=== PATIENT | male | born 1970 | race Caucasian/White ===

== ENCOUNTER 2018-09-23 00:59 | Observation (INO) ==
--- NOTE | 2018-09-23 03:01 | Emergency Department Note ---
Disposition Clinical Impression: Intractable back pain Disposition: Admitted As Inpatient Condition: Good Back Pain HPI - General Chief Complaint: ED Back Pain/Injury Stated Complaint: back pain Time Seen by Provider: 09/23/18 01:11 Source: patient, EMS Mode of arrival: private vehicle Limitations: no limitations Nursing Notes Reviewed: Yes Vital Signs Reviewed: Yes - History of Present Illness HPI Narrative: This is a 47-year-old male with a known history of degenerative disc disease to his lumbar spine his recently admitted here on 09/15 for intractable pain, inability to walk due to the pain. He was discharged on 09/20/18 and presents back tonight for evaluation of being in severe pain, continues to be unable to walk. Patient states pain is so severe that he had to utilize 28 tabs of Vicodin in less than 48 hours and is still was not assisting with pain management. Patient states pain is so severe he is unable to walk. He denies any slips, trips, trauma, falls, new injury. He states the pain is in his lumbar spine worse on the left side with radiation down his leg with some paresthesias to the left lower extremity. He states the pain is sharp and almost constantly, every little movement is too painful for him. Patient also complaining of constipation as well as "my urine is getting dark". Patient specifically asking to be admitted to the hospital due to being unable to care for himself at home. Patient denies fevers, chills, difficulty breathing, nausea, vomiting, diarrhea. Pt Subjective Complaint: back pain Onset (ago): week(s) Duration: constant Similar Symptoms Previously: Yes Location: lumbar spine Pain Severity: severe Pain Scale: 10 Quality: sharp, stabbing Radiation: left leg Improves with: other (Medication.) Worsens with: movement, supine, sitting upright, walking Context: unknown Associated symptoms: Reports: numbness (No increased, same as before), weakness (No increase, same weakness as before), difficulty walking. Denies: in continence of bowel/bladder, fever, chills, abdominal pain, dysuria, hematuria Treatments prior to arrival: acetaminophen, prescription analgesics - Related Data Home Medications Medication Instructions Recorded Confirmed Levothyroxine Sodium 250 mcg PO DAILY 09/14/18 09/23/18 Nabumetone [Relafen] 500 mg PO BID 09/14/18 09/23/18 Tizanidine HCl 2 mg PO TID PRN 09/14/18 09/23/18 Previous Rx's Medication Instructions Recorded Acetaminophen [Tylenol] 650 mg PO Q6HR PRN 7 Days #56 09/17/18 tablet Alcohol Antiseptic Pads [Alcohol 1 each [facility] 100 Days #500 09/17/18 Pads] med..pad Blood Sugar Diagnostic [Blood 1 each [facility] 100 Days #400 strip 09/17/18 Glucose Test Strip] Blood-Glucose Meter [Blood Glucose 1 each [facility] #1 each 09/17/18 Monitoring] HYDROcodone/Acet 5/325 mg [[place] 1 tab PO Q6HR PRN 7 Days #28 tablet 09/17/18 5-325 mg] Insulin Glargine,Hum.rec.anlog 15 unit SQ HS 30 Days #5 insuln.pen 09/17/18 [Basaglar Kwikpen U-100] Lancets 1 each [facility] 100 Days #400 each 09/17/18 OxyCODONE Immed Rel [Roxicodone 5 10 mg PO Q6HR PRN 7 Days #56 tablet 09/17/18 MG] Pen Needle, Diabetic [1St Tier 1 each HS 30 Days #30 dis.needle 09/17/18 Unifine Pentips] Sitagliptin Phos/Metformin HCl 1 each PO BID 30 Days #60 tablet 09/17/18 [Janumet 50-500 mg Tablet] Gabapentin [Neurontin] 300 mg PO TID 30 Days #90 capsule 09/20/18 methylPREDNISolone [Medrol] 32 mg PO DAILY 8 Days #30 tablet 09/20/18 Allergies Allergy/AdvReac Type Severity Reaction Status Date / Time Penicillins Allergy Seizure Verified 02/24/16 03:20 All systems ED: reviewed and negative except as stated. Review of Systems: As Per HPI Past Medical History - Past Medical History Attestation: Yes The following information was validated with the patient. Source: patient Medical history: Reports: diabetes, thyroid disease, other Surgical history: Reports: no surgical history Psychiatric history: Reports: no psych history - Social History Smoking Status: Current every day smoker Smokeless Tobacco Status: No Alcohol use: Reports: none Drug use: Reports: marijuana Physical Exam - General Limitations: no limitations General appearance: alert, in distress (Due to pain) - Head Head exam: atraumatic, normocephalic, normal inspection - Eye Eye exam: Present: normal appearance - ENT ENT exam: mucous membranes moist - Neck Neck exam: Present: normal inspection, full ROM, trachea midline. Absent: tenderness - Chest Chest inspection: Present: normal inspection, symmetric chest wall rise - Abdominal Exam Abdominal exam: Present: soft, Non-Tender - Extremities Exam Extremities exam: Present: normal inspection, full ROM. Absent: tenderness, pedal edema - Back Exam Back exam: Present: normal inspection, full ROM (He does still out in pain), straight leg raise (L). Absent: tenderness, vertebral tenderness, sciatic notch tenderness (L) - Neurological Exam Neurological exam: Present: alert, oriented X3. Absent: normal gait (Due to pain will not attempt) - Psychiatric Psychiatric exam: Present: normal affect, normal mood - Skin Skin exam: Present: warm, dry, intact, normal color Course Course Narrative: Thin male who appears in moderate amount of distress due to pain. Respirations are easy and even. Patient noted to keep left leg flexed, he states is too painful to lie flat. Active range of motion to bilateral lower extremity shows patient The back of signs screaming in pain with straight leg raise, he does have full range of motion to his knee, ankle. Active range of motion right side without deficit. Patient is neurovascularly intact distally, push/pulls are equal and strong. Patient does have some paresthesia to left leg, he states this has been the whole time and is not any worse. I do not Appreciate any evidence saddle anesthesia. We will treat pain continue to evaluate. Patient insisted that he is unable to walk home, given the severity of his symptoms, I find unlikely we will be able to discharge patient as he is unable care for himself at home. Review records shows patient was admitted on 09/15 for severe back pain and not being able to walk. He did have an MRI of the lumbar spine on 09/15 which showed degenerative disc disease of lumbar spine, there is some disc bulging however this was worse at the L5/S1 that showed disc bulging with central protrusion. The patient was here he saw Dr. Pina from spinal surgery who recommended PT/OT and following outpatient prior to considering surgery, patient did see paint formulator Dr. Velasquez who added gabapentin 2 pain regimen and agreed to follow for pain management. He was given 20 tablets of Vicodin upon discharge, he states he has taken them all in less than 48*. - Reevaluation(s) Reevaluation #1: Patient much calmer after pain medication administration, able to stretch his le g with minimal grimacing versus earlier when he was screaming in pain. CBC/BMP/UA returns unremarkable. KUB does show moderate amount of stool, patient is complaining of cuts patient. We did order some MiraLAX to assist with constipation. Plan at this time is we will page hospitalist for admission. Did discuss possibility of a short-term rehabilitation for PT and OT as patient is unable to take care of himself, he is agreeable to this plan of care and states that he thinks he needs it. We will page hospitalist at this time. Time: 04:39 Reevaluation #2: Spoke with hospitalist, agreeable to admit patient to inpatient services for social work, safety, possible rehabilitation placement. Vital Signs Temperature 97.9 F 09/23/18 01:02 Pulse Rate 90 09/23/18 01:02 Respiratory Rate 18 09/23/18 01:02 Blood Pressure 134/83 09/23/18 01:02 O2 Sat by Pulse Oximetry 98 09/23/18 01:02 Temperature 97.9 F 09/23/18 01:02 Pulse Rate 90 09/23/18 01:02 Respiratory Rate 18 09/23/18 05:13 Blood Pressure 131/93 09/23/18 05:13 O2 Sat by Pulse Oximetry 97 09/23/18 04:09 Oxygen Delivery Oxygen Delivery Room Air Back Pain/Injury - Lab Data Result diagrams: 09/23/18 04:00 09/23/18 04:00 Lab Results 09/23/18 09/23/18 09/23/18 Range/Units 03:55 04:00 04:00 WBC 8.9 (4.3-11.1) K/mcL RBC 5.73 H (4.19-5.50) M/mcL Hgb 17.3 H (12.9-16.9) g/dL Hct 49.1 (37.5-50.1) % MCV 85.7 (83.0-100.0) fL MCH 30.2 (28.0-33.3) pg MCHC 35.2 (31.6-35.5) g/dL RDW 12.1 (11.5-14.5) % Plt Count 329 (140-400) K/mcL MPV 9.1 L (9.4-12.4) fL Immature Gran % 0.6 (0-4) % Seg Neutrophils % 77.6 % Lymphocytes % 18.4 % Monocytes % 3.1 % Eosinophils % 0.1 % Basophils % 0.2 % Neutrophils # 6.9 (1.6-8.9) K/mcL Lymphocytes # 1.6 (0.6-4.6) K/mcL Monocytes # 0.3 (0.0-1.3) K/mcL Eosinophils # 0.0 (0.0-0.6) K/mcL Basophils # 0.0 (0.0-0.2) K/mcL Sodium 136 (136-145) mEq/L Potassium 4.4 (3.5-5.1) mEq/L Chloride 101 (98-107) mEq/L Carbon Dioxide 28 (23-29) mEq/L BUN 21 H (6-20) mg/dL Creatinine 0.93 (0.70-1.30) mg/dL Est GFR ( Amer) > 60 (> 60) Est GFR (Non-Af Amer) > 60 (> 60) BUN/Creatinine Ratio 23 (6-26) Glucose 87 (70-105) mg/dL Calculated Osmolality 284 (280-300) Calcium 9.4 (8.6-10.3) mg/dL Urine Color Yellow (Yellow) Urine Clarity Clear (Clear) Urine pH 6.0 (5.0-8.0) pH Units Ur Specific [place] 1.025 (1.010-1.025) Urine Protein Negative (Neg-Trace) mg/dL Urine Glucose (UA) Normal (Normal) mg/dL Urine Ketones Negative (Negative) mg/dL Urine Blood Moderate H (Negative) Urine Nitrite Negative (Negative) Urine Bilirubin Negative (Negative) Urine Urobilinogen Normal (Normal) mg/dL Ur Leukocyte Esterase Negative (Negative) Urine Microscopic RBC 15-30 H (0-3) per hpf Urine Microscopic WBC 0-3 (0-3) per hpf Ur Squamous Epith Cells None Seen (None-Few) per lpf Urine Bacteria None Seen (None-Few) per hpf Hyaline Casts None Seen (None-Few) per lpf Ur Culture Indicated? NO (NO) Attestation Statement - Attestation Attestation: I, Uvaldo Ibanez, examined this patient and my medical decision-making was reviewed with the APPRAISAL SPECIALIST/PA/Advanced Practice Nurse/Resident Physician. I agree with the documented findings, disposition and treatment plan as described except to the extent set forth below. 47-year-old male presents emergency Department with concerns of intractable back pain. Patient states he was recently admitted to the hospital for similar issues. He was at home however he states he has been unable to ambulate at home secondary to pain. States he has multiple herniated disks in his lumbar spine however he denies incontinence of urine or stool. He has intact sensation intact. Unlikely cauda equina. Patient given pain medication emergency department. He will be admitted to the hospitalist for further care and evaluation and likely placement into a rehabilitation facility.
[2018-09-23] MEDS ORDERED: *HR* FentaNYL (PF) 100 MCG/2 ML VIAL IVP ONE (03:04)
[2018-09-23 04:13] LABS: Bilirubin,Urine Negative (Negative); Blood,Urine Moderate (Negative); Clarity,Urine Clear (Clear); Color,Urine Yellow (Yellow); Glucose,Urine (UA) Normal (Normal); Ketones,Urine Negative (Negative); Leukocyte Esterase,Urine Negative (Negative); Nitrite,Urine Negative (Negative); Protein,Urine Negative (Neg-Trace); Specific Gravity,Urine 1.025 (1.010-1.025); Urobilinogen,Urine Normal (Normal)
[2018-09-23 04:16] LABS: Basophils % 0.2 %; Eosinophils % 0.1 %; Hematocrit 49.1 % (37.5-50.1); Hemoglobin 17.3 g/dL (12.9-16.9); Immature Granulocytes % 0.6 % (0-4); Lymphocytes # 1.6 K/mcL (0.6-4.6); Lymphocytes % 18.4 %; Mean Corpuscular HGB Conc 35.2 g/dL (31.6-35.5); Mean Corpuscular Hemoglobin 30.2 pg (28.0-33.3); Mean Corpuscular Volume 85.7 fL (83.0-100.0); Mean Platelet Volume 9.1 fL (9.4-12.4); Monocytes # 0.3 K/mcL (0.0-1.3); Monocytes % 3.1 %; Neutrophils # 6.9 K/mcL (1.6-8.9); Platelet Count 329 K/mcL (140-400); Red Blood Count 5.73 M/mcL (4.19-5.50); Red Cell Distribution Width 12.1 % (11.5-14.5); Segmented Neutrophils % 77.6 %
[2018-09-23 04:29] LABS: Hyaline Casts,Urine None Seen per lpf (None-Few)
[2018-09-23 04:30] LABS: RBC,Urine 15-30 per hpf (0-3); Squamous Epithelial Cell,Urine None Seen per lpf (None-Few); WBC,Urine 0-3 per hpf (0-3)
[2018-09-23 04:31] LABS: Bacteria,Urine None Seen per hpf (None-Few)
[2018-09-23 04:34] LABS: BUN/Creatinine Ratio 23 (6-26); Blood Urea Nitrogen 21 mg/dL (6-20); Calcium 9.4 mg/dL (8.6-10.3); Carbon Dioxide 28 mEq/L (23-29); Chloride 101 mEq/L (98-107); Glucose 87 mg/dL (70-105); Osmolality,Calculated 284 (280-300); Potassium 4.4 mEq/L (3.5-5.1); Sodium 136 mEq/L (136-145); eGFR For Non-African Americans > 60 (> 60)
[2018-09-23] MEDS ORDERED: Dextrose Gel 15 GM/37.5 ML TUBE PO PRN ×2 (05:51)
--- NOTE | 2018-09-23 06:09 | Internal Med History&Physical ---
Date of Encounter: 09/23/18 Time of Encounter: 06:06 Internal Medicine - H&P: HPI Chief complaint: back pain Admitted From: Home Plans for Post Hospital Care: Home History of present illness: Jose Raul Dye is a 47-year-old man with recently diagnosed diabetes and poorly controlled hypothyroidism who was discharged from here only 3 days ago at which time he was admitted for acute onset and found to have lumbar radiculopathy causing shooting pain down his right thigh and causing functional impairment and extremity due to pain. He was evaluated by Dr. Pina of orthopedic spinal surgery with the recommendation of outpatient physical therapy and referral to an interventional list for lumbar epidural steroid injections. It was stated that if he failed nonoperative treatment he could be considered for surgical discectomy at a later time but there was no neurologic deficit prompting urgent intervention at the moment. He was also evaluated by pain management with recommendations given. While at home he states that in the last 2 days he has finished the 28 tablets of [place] that was prescribed to him due to pain. He has continued to take the steroid taper however. He comes in now complaining of ongoing pain stating that he is unable to ambulate or extend his leg. He has difficulty with activities of daily living due to this functional impairment and now comes in requesting inpatient rehabilitation therapy. He received fentanyl and polyethylene glycol for reported constipation. At this time he has no other complaints. Past Med Surg Social Fam HX - Past Medical History Medical history: diabetes, thyroid disease, other Psychiatric history: no psych history - Past Surgical History Surgical History: no surgical history - Social History Smoking Status: Current every day smoker Smokeless Tobacco Status: No Alcohol use: none Drug use: marijuana Internal Medicine - H&P: Meds Levothyroxine Sodium 250 mcg PO DAILY 09/14/18 [History] Nabumetone [Relafen] 500 mg PO BID 09/14/18 [History] Tizanidine HCl 2 mg PO TID PRN 09/14/18 [History] Acetaminophen [Tylenol] 650 mg PO Q6HR PRN 7 Days #56 tablet 09/17/18 [Rx] Alcohol Antiseptic Pads [Alcohol Pads] 1 each [facility] 100 Days #500 med..pad 09/17/18 [Rx] Blood Sugar Diagnostic [Blood Glucose Test Strip] 1 each [facility] 100 Days #400 strip 09/17/18 [Rx] Blood-Glucose Meter [Blood Glucose Monitoring] 1 each [facility] #1 each 09/17/18 [Rx] HYDROcodone/Acet 5/325 mg [[place] 5-325 mg] 1 tab PO Q6HR PRN 7 Days #28 tablet 09/17/18 [Rx] Insulin Glargine,Hum.rec.anlog [Basaglar Kwikpen U-100] 15 unit SQ HS 30 Days #5 insuln.pen 09/17/18 [Rx] Lancets 1 each [facility] 100 Days #400 each 09/17/18 [Rx] OxyCODONE Immed Rel [Roxicodone 5 MG] 10 mg PO Q6HR PRN 7 Days #56 tablet 09/17/18 [Rx] Pen Needle, Diabetic [1St Tier Unifine Pentips] 1 each HS 30 Days #30 dis.needle 09/17/18 [Rx] Sitagliptin Phos/Metformin HCl [Janumet 50-500 mg Tablet] 1 each PO BID 30 Days #60 tablet 09/17/18 [Rx] Gabapentin [Neurontin] 300 mg PO TID 30 Days #90 capsule 09/20/18 [Rx] methylPREDNISolone [Medrol] 32 mg PO DAILY 8 Days #30 tablet 09/20/18 [Rx] Allergy/AdvReac Type Severity Reaction Status Date / Time Penicillins Allergy Seizure Verified 02/24/16 03:20 All Systems PM: A 10-system review of systems was performed and is negative for pertinent findings except as documented above in the HPI. Family history reviewed and found noncontributory. - Constitutional Vitals: Temp Pulse Resp BP Pulse Ox 97.9 F 90 18 131/93 97 09/23/18 01:02 09/23/18 01:02 09/23/18 05:13 09/23/18 05:13 09/23/18 04:09 Exam: Vitals: Reviewed General: Well appearing and in no acute distress Skin: Warm and supple HEENT: Moist mucous membranes. No conjunctivae pallor. Neck: No lymphadenopathy. No JVD. No carotid bruits. No palpable thyroid. Chest: Normal thoracic expansion. Normal breath sounds. Clear to auscultation. Heart: Normal S1 & S2; rhythmic. No rubs or murmurs. Abdomen: Non-distended, soft and non-tender to palpation. No peritoneal reaction. Extremities: No clubbing, cyanosis or edema. No calf tenderness. Normal distal pulses. Sensation intact. Right leg flexed and has difficulty extending due to pain. Point tenderness at the right lumbosacral region noted. Straight leg testing unable to be performed due to pain. Neurological: Awake, alert and oriented to person, place and time. No focal d eficits. Psych: Affect appropriate. Internal Med - H&P Results - Labs CBC & Chem 7: 09/23/18 04:00 09/23/18 04:00 Labs: Short CBC 09/23/18 Range/Units 04:00 WBC 8.9 (4.3-11.1) K/mcL Hgb 17.3 H (12.9-16.9) g/dL Hct 49.1 (37.5-50.1) % Plt Count 329 (140-400) K/mcL Neutrophils # 6.9 (1.6-8.9) K/mcL BMP 09/23/18 04:00 Sodium 136 Potassium 4.4 Chloride 101 Carbon Dioxide 28 BUN 21 H Creatinine 0.93 Glucose 87 Calcium 9.4 Urine 09/23/18 Range/Units 03:55 Urine Color Yellow (Yellow) Urine Clarity Clear (Clear) Urine pH 6.0 (5.0-8.0) pH Units Ur Specific [place] 1.025 (1.010-1.025) Urine Protein Negative (Neg-Trace) mg/dL Urine Glucose (UA) Normal (Normal) mg/dL - Impressions ITS Impressions Chest/Abdomen X-ray 09/23/18 03:10 IMPRESSION: No acute process in the chest. No bowel obstruction or free air. Moderate volume retained fecal material. Correlate for constipation. D/ / De Johnson / De Johnson Interpreting Provider: De Johnson - Assessment and plan (1) Lumbar radiculopathy Current Visit: Yes Status: Acute Assessment and plan: Will continue the oral steroid taper he has already started. Now on 8mg BID x 2 days then will go on to 4mg BIB x 2 days then 4mg daily x 2 days. Continue gabapentin and oxycodone prn as recommended by pain management. vegetable farm worker consult for placement in rehab center as deemed appropriate. (2) DVT prophylaxis Current Visit: Yes Status: Acute Assessment and plan: Subcutaneous heparin indicated. (3) Diabetes mellitus Current Visit: Yes Status: Acute Assessment and plan: We will place on basal insulin and continue with sliding scale during the day. Qualifiers: Diabetes mellitus type: type 2 Diabetes mellitus long chain beamer insulin use: without fpc use Diabetes mellitus complication status: without complication Qualified Code(s): E11.9 - Type 2 diabetes mellitus without complications (4) Hypothyroidism Current Visit: Yes Status: Acute Assessment and plan: Continue levothyroxine. Qualifiers: Hypothyroidism type: acquired Qualified Code(s): E03.9 - Hypothyroidism, unspecified - Time Spent With Patient Total time spent is greater than 50% in coordination of care (as documented) at patient's floor/unit and/or counseling patient: Greater than 35 minutes
[2018-09-23] MEDS: *HR* OxyCODONE Immed Rel 5 MG TABLET PO PRN ×3 (06:31→20:46)
[2018-09-23] MEDS: *HR* Heparin 5,000 UNIT/ML VIAL SQ SCH ×3 (06:31→20:47)
[2018-09-23] MEDS: Insulin LISPRO 300 UNITS/3 ML VIAL SQ SCH ×4 (08:54→20:47)
[2018-09-23] MEDS: methylPREDNISolone 4 MG TABLET PO SCH ×2 (08:56→15:30)
[2018-09-23] MEDS: Gabapentin 300 MG CAPSULE PO SCH ×3 (08:56→20:16)
[2018-09-23] MEDS: tiZANidine 4 MG TABLET PO PRN (18:51)
--- NOTE | 2018-09-23 19:17 | Internal Med Progress Note ---
Hospitalist Progress Note - Encounter Date of Encounter: 09/23/18 Time of Encounter: 15:15 - Subjective Interval History: Mr. Dye is resting quietly in his room in the bed he is continuing to complain of significant back pain rates his pain as a 5 continuous of 10. He states that currently he is unable to find any place of comfort, as in the past he was able to at times find a comfortable position however he is unable to do that today. He is hopeful that he will be able to be placed in 2 long-term rehabilitation, and physical therapy for his back. He is positive for past medical history of new onset diabetes and poorly controlled hypothyroidism. He states he does see Dr. gladis mora top precipitator operator helper for both of his endocrine problems reports he has poor control of the thyroid disease due to he was not taking his medications as he should and the medication was continually being increased and then when he did start to take it as prescribed and he started to lose a lot of weight and was having difficulty with having hyperthyroidism. Review of lab work shows that [id number] glucose this morning was 111, urine did have was negative for leukocyte Estrace, he did have 15-30 red blood cells Chest x-ray was observed and reviewed and shows no acute processes, abdominal x- ray shows no bowel obstruction or free air with a moderate volume retained fecal material. . - Exam Vitals: Temp Pulse Resp BP Pulse Ox 98.1 F 87 16 134/78 98 09/23/18 14:35 09/23/18 14:35 09/23/18 14:35 09/23/18 14:35 09/23/18 14:35 Exam: Stable - Assessment and Plan (1) Lumbar radiculopathy Current Visit: No Status: Acute Assessment and Plan: Patient rates his pain today as a 5 on a 10 scale constant, He states that it is anterior from the proximal to the distal tibia and down the dorsal foot at rest however when he tries to move or stand or ambulate that he develops pain that starts from the left lateral lumbar atorvastatin over the buttock into the groin and down the anterior thigh, He reports that he has difficulty with ambulation prolonged standing. He denies any leg weakness loss of bowel or bladder. Currently will continue with his chronic pain management and social work specialist has been involved to see about getting him placed for in-house physical therapy and rehabilitation . Consultation for physical therapy and occupational therapy has been ordered today (2) Diabetes mellitus Current Visit: No Status: Acute Assessment and Plan: We will continue to monitor her blood sugars and continue with his insulin regimen, is to continue on a diabetic diet (3) Hypothyroidism Current Visit: No Status: Acute Assessment and Plan: We will continue with levothyroxine and monitor his levels in a.m. (4) DVT prophylaxis Current Visit: No Status: Acute Assessment and Plan: We will continue with anticoagulation therapy monitoring lab levels and DVT pr ophylaxis per protocol - Time Spent with Patient Total time spent is greater than 50% in coordination of care (as documented) at patient's floor/unit and/or counseling patient: less than 15 minutes Plan of Care Discussed with: patient Internal Medicine: Result - Labs CBC & Chem 7: 09/23/18 04:00 09/23/18 04:00 Labs: Short CBC 09/23/18 Range/Units 04:00 WBC 8.9 (4.3-11.1) K/mcL Hgb 17.3 H (12.9-16.9) g/dL Hct 49.1 (37.5-50.1) % Plt Count 329 (140-400) K/mcL Neutrophils # 6.9 (1.6-8.9) K/mcL BMP 09/23/18 04:00 Sodium 136 Potassium 4.4 Chloride 101 Carbon Dioxide 28 BUN 21 H Creatinine 0.93 Glucose 87 Calcium 9.4 Urine 09/23/18 Range/Units 03:55 Urine Color Yellow (Yellow) Urine Clarity Clear (Clear) Urine pH 6.0 (5.0-8.0) pH Units Ur Specific [place] 1.025 (1.010-1.025) Urine Protein Negative (Neg-Trace) mg/dL Urine Glucose (UA) Normal (Normal) mg/dL - Impressions Impressions Chest/Abdomen X-ray 09/23/18 03:10 IMPRESSION: No acute process in the chest. No bowel obstruction or free air. Moderate volume retained fecal material. Correlate for constipation. D/ / De Johnson / De Johnson Interpreting Provider: De Johnson Consult Discharge Plan - Plan Referrals: Francois Hernandez DO [Primary Care Provider] - (2) Diabetes mellitus Qualifiers: Diabetes mellitus type: type 2 Diabetes mellitus terminal operations manager insulin use: without fci use Diabetes mellitus complication status: without complication Qualified Code(s): E11.9 - Type 2 diabetes mellitus without complications (3) Hypothyroidism Qualifiers: Hypothyroidism type: acquired Qualified Code(s): E03.9 - Hypothyroidism, unspecified
[2018-09-23] MEDS: Acetaminophen 325 MG TABLET PO PRN (20:16)
[2018-09-23] MEDS: Insulin DETEMIR 100 UNIT/ML X5UNITS SQ SCH (20:48)
[2018-09-23] MEDS ORDERED: NON-FORMULARY MEDICATION 1 EACH EACH (Insulin Glargine,Hum.Rec.Anlog [Basaglar Kwikpen U-1 SQ SCH (21:00)
[2018-09-24] MEDS: Acetaminophen 325 MG TABLET PO PRN (02:21)
[2018-09-24] MEDS: *HR* OxyCODONE Immed Rel 5 MG TABLET PO PRN ×4 (04:40→23:43)
[2018-09-24] MEDS: *HR* Heparin 5,000 UNIT/ML VIAL SQ SCH ×3 (05:39→21:02)
[2018-09-24 05:52] LABS: Prothrombin Time 10.8 Seconds (9.4-12.1)
[2018-09-24 06:17] LABS: Thyroid Stimulating Hormone 21.784 mcIU/mL (0.340-5.600)
[2018-09-24] MEDS: tiZANidine 4 MG TABLET PO PRN ×2 (06:33→15:24)
[2018-09-24] MEDS: Insulin LISPRO 300 UNITS/3 ML VIAL SQ SCH ×4 (07:45→20:57)
[2018-09-24] MEDS ORDERED: *HR* Morphine 2 MG/ML SYRINGE IVP ONE (09:28)
[2018-09-24] MEDS ORDERED: Gadolinium Contrast Agent (WT Based) IV PRN (09:29)
[2018-09-24] MEDS: Gabapentin 300 MG CAPSULE PO SCH ×3 (09:44→21:02)
[2018-09-24] MEDS: methylPREDNISolone 4 MG TABLET PO SCH ×2 (09:44→17:15)
[2018-09-24 10:13] LABS: Triiodothyronine (T3) Free 2.79 pg/mL (2.50-3.90)
--- NOTE | 2018-09-24 10:42 | Internal Med Progress Note ---
Hospitalist Progress Note - Encounter Date of Encounter: 09/24/18 Time of Encounter: 10:38 - Subjective Interval History: Pt states he fell on his left knee 3months ago while wrestling with his son and he did not have his knee medically examined. He initially stated it did not hurt henece why he did not have his knee medically examined but then stated he could not walk due to pain but still did not infomr anyone about it. He denies fever of chills. He denies N/V or diarrhea. He denies CP or SOB. - Exam Vitals: Temp Pulse Resp BP Pulse Ox 98.3 F 65 14 119/74 98 09/24/18 10:32 09/24/18 10:32 09/24/18 10:32 09/24/18 10:32 09/24/18 10:32 Exam: Exam: General: Well appearing and in no acute distress Skin: Warm and supple HEENT: Moist mucous membranes. No conjunctivae pallor. Neck: No lymphadenopathy. No JVD. No carotid bruits. No palpable thyroid. Chest: Normal thoracic expansion. Normal breath sounds. Clear to auscultation. Heart: Normal S1 & S2; rhythmic. No rubs or murmurs. Abdomen: Non-distended, soft and non-tender to palpation. No peritoneal reaction. Extremities: No clubbing, cyanosis or edema. No calf tenderness. Normal distal pulses. Sensation intact. Right leg flexed and has difficulty extending due to pain. Point tenderness at the right lumbosacral region noted. Straight leg testing unable to be performed due to pain. Neurological: Awake, alert and oriented to person, place and time. No focal deficits. Psych: Affect appropriate. - Assessment and Plan (1) Lumbar radiculopathy Current Visit: No Status: Acute Assessment and Plan: Patient was discharged a few days ago with 20 pills of vicodine to be taken prn but he completed the pills in 2 days. He is currently on Oxycodone immediate release, Zanaflex and methylprednisone but pt continues to request more pain medication. Given one time dose of Morphine now. Will check MRI lumbar and thoracic spine as there is not one on record. Continue PT/OT. Pt was scheduled to follow up out pt with pain management and strongly recommend he follow up with them at discharge as recommended. (2) Diabetes mellitus Current Visit: No Status: Acute Assessment and Plan: We will continue to monitor her blood sugars and continue with his insulin regimen, is to continue on a diabetic diet. On Basal and SSI due to being on steroid (3) Hypothyroidism Current Visit: No Status: Acute Assessment and Plan: We will continue with levothyroxine and monitor his levels in a.m. Will check T3 levels and recheck TSH elevels. FT4 wnl. Follow up out pt with PCP. (4) Knee pain, left Current Visit: Yes Status: Acute Assessment and Plan: Will check X ray left knee to rule out fracture. Continue pain control. 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 He was evaluated by Dr. Pina of orthopedic spinal surgery with the recommendation of outpatient physical therapy and referral to an interventional list for lumbar epidural steroid injections. It was stated that if he failed nonoperative treatment he could be considered for surgical discectomy at a later time but there was no neurologic deficit prompting urgent intervention at the moment. He was also evaluated by pain management with recommendations given. While at home he states that in the last 2 days he has finished the 28 tablets of [place] that was prescribed to him due to pain. He has continued to take the steroid taper however. He comes in now complaining of ongoing pain stating that he is unable to ambulate or extend his leg. He has difficulty with activities of daily living due to this functional impairment and now comes in requesting inpatient rehabilitation therapy. He received fentanyl and polyethylene glycol for reported constipation. At this time he has no other complaints. - Time Spent with Patient Total time spent is greater than 50% in coordination of care (as documented) at patient's floor/unit and/or counseling patient: less than 15 minutes Plan of Care Discussed with: patient Internal Medicine: Result - Labs CBC & Chem 7: 09/23/18 04:00 09/23/18 04:00 - ABG Interpretation ABG results: PT/INR, D-dimer PT 10.8 Seconds (9.4-12.1) 09/24/18 05:26 Consult Discharge Plan - Plan Referrals: Francois Hernandez DO [Primary Care Provider] - (2) Diabetes mellitus Qualifiers: Diabetes mellitus type: type 2 Diabetes mellitus assistant superintendent insulin use: without assistant superintendent use Diabetes mellitus complication status: without complication Qualified Code(s): E11.9 - Type 2 diabetes mellitus without complications (3) Hypothyroidism Qualifiers: Hypothyroidism type: acquired Qualified Code(s): E03.9 - Hypothyroidism, unspecified
[2018-09-24 14:03] LABS: Amphetamine Screen,Urine Negative ng/mL (Cutoff=1000); Barbiturate Screen,Urine Negative ng/mL (Cutoff=200); Benzodiazepines Screen,Urine Negative ng/mL (Cutoff=200); Cannabinoid Screen,Urine Positive ng/mL (Cutoff = 50); Cocaine Screen,Urine Negative ng/mL (Cutoff= 300); Opiate Screen,Urine Positive ng/mL (Cutoff=300); Phencyclidine Screen,Urine Negative ng/mL (Cutoff=25)
--- NOTE | 2018-09-24 15:10 | Event Note ---
Date of Encounter: 09/24/18 Time of Encounter: 14:[address] Pina and will see in consult in am. Pt at this time denies any loss of bowel or bladder function. No foot drop evident on physical exam. Lumbar spine CT CT/CT lumbar spine wo con IMPRESSION: L4-L5 left lateral recess/foraminal disc protrusion, contacting and displacing the exiting left L4 nerve root. MRI lumbar spine MR/MR lumbar spine wo con IMPRESSION: Multilevel degenerative disc disease throughout the lumbar spine as described. See above for details of each level.
[2018-09-24] MEDS: Insulin DETEMIR 100 UNIT/ML X5UNITS SQ SCH (21:02)
[2018-09-25] MEDS: *HR* Heparin 5,000 UNIT/ML VIAL SQ SCH ×3 (05:57→20:46)
[2018-09-25] MEDS: *HR* OxyCODONE Immed Rel 5 MG TABLET PO PRN ×2 (05:59→16:16)
[2018-09-25] MEDS: methylPREDNISolone 4 MG TABLET PO SCH (08:02)
[2018-09-25] MEDS: Gabapentin 300 MG CAPSULE PO SCH ×3 (08:02→20:45)
[2018-09-25] MEDS: Insulin LISPRO 300 UNITS/3 ML VIAL SQ SCH ×4 (08:03→20:46)
[2018-09-25] MEDS: tiZANidine 4 MG TABLET PO PRN ×2 (08:10→22:24)
--- NOTE | 2018-09-25 08:22 | Spinal Consult Note ---
Date of Encounter: 09/25/18 Time of Encounter: 08:20 Assessment and Plan (1) Foraminal stenosis of lumbar region Current Visit: Yes Status: Acute On exam he is lying comfortably in bed in no acute distress. While distracted he flexes and extends the left knee without pain. Afebrile vital signs stable. His hips move symmetrically. He has good strength 5 out of 5 in all lower extremity motor groups. He has a negative straight leg raise. He has no clonus. He is neurovascularly intact with regard to his bilateral lower extremities. MRI of the lumbar spine dated 09/14/2018 reveals multilevel mild degenerative changes. There is bilateral mild to the moderate foraminal stenosis secondary to disc bulges at L4-5 and L5-S1. MRI thoracic spine is unremarkable. Impression: 1) foraminal stenosis lumbar spine 2) lumbar radiculopathy Plan: I had a long discussion with the patient. I agree with the current medication regimen of oral steroids, muscle relaxants, neuroleptics, and narcotic analgesics. I would not favor stronger narcotic analgesics as his history suggests some seeking and or misuse of medication type behaviors. I highly suggested pain management consultation for consideration of lumbar epidural steroid injections. This can be arranged quickly with an evaluation by early next week. I would also suggest a physical therapy program for gait training, mobilization, core strengthening, and consideration of additional modalities. If he is not compliant with participation in therapy may need to be discharged to rehabilitation facility. Again, it highly suggests an interventional pain management follow-up consultation for lumbar epidural steroid injections. I see no role for acute surgical intervention. History of Present Illness Chief complaint: Left leg pain, difficulty walking HPI: Mr. Dye is a 47 year old male Who complains of a two-week history of back, left hip and leg pain for approximately 2 weeks. The pain was so intense it interfered with his ability to walk. He was actually admitted on September 14 and discharged with analgesic medication and outpatient physical therapy as well as scheduled with interventional pain management consultation with Dr. Velasquez. However, he returned to the hospital the day of his appointment with pain management due to intractable pain. He has been on narcotic analgesics, oral steroids, neuroleptics, and muscle relaxants for his pain. He still is not ambulating well. He rates his pain a 7 on a pain scale. He has no bowel bladder symptomatology and denies weakness. Past Med Surg Social Fam HX - Past Medical History Medical history: diabetes, thyroid disease, other Psychiatric history: no psych history - Past Surgical History Surgical History: no surgical history - Social History Smoking Status: Current every day smoker Smokeless Tobacco Status: No Alcohol use: none Drug use: marijuana - Family History Mother Hx Family GI Disorders: Yes (Chron's) Medications and Allergies Levothyroxine Sodium 250 mcg PO DAILY 09/14/18 [History] Nabumetone [Relafen] 500 mg PO BID 09/14/18 [History] Insulin Glargine,Hum.rec.anlog [Basaglar Kwikpen U-100] 15 unit SQ HS 30 Days #5 insuln.pen 09/17/18 [Rx] Gabapentin [Neurontin] 300 mg PO TID 30 Days #90 capsule 09/20/18 [Rx] methylPREDNISolone [Medrol] 32 mg PO DAILY 8 Days #30 tablet 09/20/18 [Rx] Alogliptin Chuck/Metformin HCl [Alogliptin-Metformin 12.5-500] 1 tab PO BID 09/23/18 [History] Allergy/AdvReac Type Severity Reaction Status Date / Time Penicillins Allergy Seizure Verified 02/24/16 03:20 Results - Labs Result Diagrams: 09/23/18 04:00 09/23/18 04:00 Labs: Abnormal lab results RBC 5.73 M/mcL (4.19-5.50) H 09/23/18 04:00 Hgb 17.3 g/dL (12.9-16.9) H 09/23/18 04:00 MPV 9.1 fL (9.4-12.4) L 09/23/18 04:00 BUN 21 mg/dL (6-20) H 09/23/18 04:00 POC Glucose 150 mg/dL (70-99) H 09/24/18 11:30 TSH 18.233 mcIU/mL (0.340-5.600) H 09/25/18 04:44 Urine Blood Moderate (Negative) H 09/23/18 03:55 Urine Microscopic RBC 15-30 per hpf (0-3) H 09/23/18 03:55 Urine Opiates Screen Positive ng/mL (Zvemvu=155) H 09/24/18 11:00 U Marijuana (THC) Screen Positive ng/mL (Cutoff = 50) H 09/24/18 11:00 All other labs normal. Consult Discharge Plan - Plan Referrals: Francois Hernandez DO [Primary Care Provider] -
[2018-09-25] MEDS ORDERED: methylPREDNISolone 125 MG/2 ML VIAL IVP ONE (09:33)
[2018-09-25] MEDS ORDERED: Pantoprazole 40 MG VIAL IVP ONE (09:39)
[2018-09-25] MEDS ORDERED: Ketorolac 30 MG/ML VIAL IVP ONE (09:40)
--- NOTE | 2018-09-25 10:14 | Internal Med Progress Note ---
Hospitalist Progress Note - Encounter Date of Encounter: 09/25/18 Time of Encounter: 09:20 - Subjective Interval History: Patient seen and examined today. He is rating his pain is unchanged about 7 out of 10 in severity. I called pain management and orthopedics. The consensus was to try patient on IV Solu-Medrol and Toradol. The patient will follow-up as an outpatient with pain management for interventional steroid epidural shots which would be better achieved under fluoroscopy then at the bedside. - Exam Vitals: Temp Pulse Resp BP Pulse Ox 97.9 F 86 18 141/86 99 09/25/18 06:51 09/25/18 06:51 09/25/18 06:51 09/25/18 06:51 09/25/18 06:51 Exam: Exam: General: Well appearing and in no acute distress Skin: Warm and supple Chest: Normal thoracic expansion. Normal breath sounds. Clear to auscultation. Heart: Normal S1 & S2; rhythmic. No rubs or murmurs. Abdomen: Benign. Extremities: No clubbing, cyanosis or edema. No calf tenderness. Normal distal pulses. Sensation intact. Right leg flexed and has difficulty extending due to pain. Point tenderness at the right lumbosacral region noted. Straight leg testing positive on left. Neurological: Awake, alert and oriented to person, place and time. No focal deficits. Psych: Affect appropriate. - Assessment and Plan (1) Lumbar radiculopathy Current Visit: No Status: Acute Assessment and Plan: Patient was discharged a few days ago with 20 pills of vicodine to be taken prn but he completed the pills in 2 days. He is currently on Oxycodone immediate release, Zanaflex . Will give patient 125 mg Solu-Medrol and 30 mg of Toradol. Continue PT/OT. Pt needs to be scheduled with Dr. Fernandez for outpatient epidural shots on Thursday. Dr. Fernandez has allowed overbook in his clinic for this purpose. (2) Diabetes mellitus Current Visit: No Status: Acute Assessment and Plan: We will continue to monitor her blood sugars and continue with his insulin regimen, is to continue on a diabetic diet. On Basal and SSI due to being on steroid (3) Hypothyroidism Current Visit: No Status: Acute Assessment and Plan: We will continue with levothyroxine. (4) Knee pain, left Current Visit: Yes Status: Acute Assessment and Plan: Continue pain control. No acute osseous abnormalities. DVT Prophylaxis: heparin - Time Spent with Patient Total time spent is greater than 50% in coordination of care (as documented) at patient's floor/unit and/or counseling patient: 25 - 35 minutes Internal Medicine: Result - Labs CBC & Chem 7: 09/23/18 04:00 09/23/18 04:00 - ABG Interpretation ABG results: PT/INR, D-dimer PT 10.8 Seconds (9.4-12.1) 09/24/18 05:26 - Impressions Impressions Thoracic Spine MRI 09/24/18 09:29 IMPRESSION: 1. Mild degenerative changes within the mid thoracic spine, as described above without significant spinal canal stenosis or neural foraminal narrowing evident. 2. Disc bulge and uncovertebral overgrowth at C6-C7 resulting in severe left neural foraminal narrowing. D/ / 09/24/2018 16:45:44 Joseph Green MD / jenna Interpreting Provider: Joseph Green MD Knee X-Ray 09/24/18 10:29 IMPRESSION: No acute osseous abnormalities. D/ / Marcio Cox MD / Marcio Cox MD Interpreting Provider: Marcio Cox MD Consult Discharge Plan - Plan Referrals: Francois Hernandez DO [Primary Care Provider] -
[2018-09-25] MEDS: Insulin DETEMIR 100 UNIT/ML X5UNITS SQ SCH (20:46)
[2018-09-26] MEDS: *HR* OxyCODONE Immed Rel 5 MG TABLET PO PRN ×4 (00:06→19:44)
[2018-09-26] MEDS: traMADol 50 MG TABLET PO PRN (02:08)
[2018-09-26] MEDS: *HR* Heparin 5,000 UNIT/ML VIAL SQ SCH ×3 (05:50→20:49)
[2018-09-26] MEDS: Insulin LISPRO 300 UNITS/3 ML VIAL SQ SCH ×4 (08:09→20:50)
[2018-09-26] MEDS: Gabapentin 300 MG CAPSULE PO SCH ×3 (08:10→20:49)
[2018-09-26] MEDS: tiZANidine 4 MG TABLET PO PRN ×2 (08:10→20:56)
[2018-09-26] MEDS ORDERED: Ketorolac 30 MG/ML VIAL IVP ONE (08:31)
--- NOTE | 2018-09-26 10:25 | Internal Med Progress Note ---
Hospitalist Progress Note - Encounter Date of Encounter: 09/26/18 Time of Encounter: 10:21 - Subjective Interval History: Patient seen and examined this morning at bedside. No acute overnight events. Complain of some pain in his left feet after he tried to move by himself after PT left. Currently pain control after a dose of Toradol this morning. Denies any fever or chills nausea vomiting or diarrhea. - Exam Vitals: Temp Pulse Resp BP Pulse Ox 98.0 F 75 20 150/98 98 09/26/18 06:32 09/26/18 06:32 09/26/18 06:32 09/26/18 06:32 09/26/18 06:32 Exam: General: In no acute distress. Conversant. Respiratory exam: CTAB. no accessory muscle use, rales, rhonchi, wheezes Cardiovascular exam: RRR, +S1, +S2. no murmur, gallop, rubs. GI/Abdominal exam: Non-tender, Non-distended, normal bowel sounds, soft, no peritoneal signs. Extremities exam: Pain extending Rt leg. Negative SLR. pulses palpable in b/l lower extremities. no calf tenderness Neurological exam: CN II-XII intact, AO X3, no focal deficits. no pronater drift, facial droop, speech deficit. Good strength in b/l LE. Skin exam: No skin rash, ulcer, purpura or ecchymosis. - Assessment and Plan (1) Lumbar radiculopathy Current Visit: No Status: Acute (2) Diabetes mellitus Current Visit: No Status: Acute (3) Hypothyroidism Current Visit: No Status: Acute (4) Knee pain, left Current Visit: Yes Status: Acute - Summary of Assessment and Plan Summary of Assessment and Plan: Lumbar radiculopathy - Patient was discharged a few days ago with 20 pills of vicodine to be taken prn but he completed the pills in 2 days. - currently on Oxycodone immediate release, Zanaflex . received one dose of 125 mg Solu-Medrol and 30 mg of Toradol. - Will increase dose of gabapentin. - c/w PT/OT - Plan to Dc tommorrow once scheduled with Dr. Fernandez for outpatient lumbar epidural steroid injection on Thursday. Dr. Fernandez has allowed overbook in his clinic for this purpose. Diabetes mellitus - c/w insulin regimen. - Sliding scale and accuchecks Hypothyroidism - c/w home levothyroxine. - High TSH. - Unknown if recently increased dosage. Will need dose adjustment as outpatient. 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
[2018-09-26] MEDS: Insulin DETEMIR 100 UNIT/ML X5UNITS SQ SCH (20:50)
[2018-09-27] MEDS: traMADol 50 MG TABLET PO PRN ×3 (00:50→22:41)
[2018-09-27] MEDS: *HR* OxyCODONE Immed Rel 5 MG TABLET PO PRN ×4 (01:47→20:30)
--- NOTE | 2018-09-27 04:21 | Event Note ---
Date of Encounter: 09/27/18 Time of Encounter: 03:46 Notified by nurse of patient informing her he is having chest pain. Assessed patient at bedside. Patient states he is having burning in the center of his chest after just eating a sandwich while lying down and he has history of hiatal hernia that sometimes causes similar symptoms. Vitals unchanged, no pain radiation. Tums ordered. Will continue to monitor for any new or worsening symptoms, or if burning not resolved from medication.
[2018-09-27] MEDS: tiZANidine 4 MG TABLET PO PRN ×3 (05:25→21:36)
[2018-09-27] MEDS: *HR* Heparin 5,000 UNIT/ML VIAL SQ SCH ×3 (05:25→21:38)
[2018-09-27] MEDS: Insulin LISPRO 300 UNITS/3 ML VIAL SQ SCH ×4 (07:52→21:40)
[2018-09-27] MEDS: Gabapentin 300 MG CAPSULE PO SCH ×3 (07:54→21:38)
--- NOTE | 2018-09-27 11:05 | Discharge Summary ---
- NOTES TO OUTPATIENT PROVIDER Notes to Outpatient Provider: Patient arranged tomorrow for outpatient epidural steroid injection. As significantly elevated TSH. Unclear whether recently thyroxine dosage was increased. Consider increasing thyroxine if not done recently. 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 Dye is a 47 year old male with recently diagnosed diabetes and poorly controlled hypothyroidism admitted for acute back pain from lumbar radiculopathy with shooting pain. He was recently discharged with a similar complaint to be managed without surgery however was admitted for surgical evaluation again. Thoracic MRI was obtained as well as spine evaluation. Patient has foraminal stenosis of lumbar spine and lumbar radiculopathy. Patient was seen by spine surgeon who recommended outpatient management with epidural steroid injection. No surgical intervention was recommended. Patient did have significantly elevated TSH. He was continued on home dosage as it is unclear whether recently increased. Physical therapy recommended outpatient the therapy. Patient was obtained appointment for tomorrow to get epidural injection. We will discharge patient today to home on his home medications. Discharge discussed with: patient, nurse, social work - Time Spent with Patient Total time spent providing and/or coordinating discharge services: Greater than 30 minutes (40) - Discharge Medications Home Medications: Levothyroxine Sodium 250 mcg PO DAILY 09/14/18 [History] Nabumetone [Relafen] 500 mg PO BID 09/14/18 [History] Insulin Glargine,Hum.rec.anlog [Basaglar Kwikpen U-100] 15 unit SQ HS 30 Days #5 insuln.pen 09/17/18 [Rx] Gabapentin [Neurontin] 300 mg PO TID 30 Days #90 capsule 09/20/18 [Rx] methylPREDNISolone [Medrol] 32 mg PO DAILY 8 Days #30 tablet 09/20/18 [Rx] Alogliptin Chuck/Metformin HCl [Alogliptin-Metformin 12.5-500] 1 tab PO BID 09/23/18 [History] Acetaminophen [Tylenol] 650 mg PO Q6HR PRN tablet 09/27/18 [Rx] Tizanidine HCl [Zanaflex] 2 mg PO TID PRN 09/27/18 [History] Allergies/Adverse Reactions: Allergy/AdvReac Type Severity Reaction Status Date / Time Penicillins Allergy Seizure Verified 02/24/16 03:20 Date of admission: 09/23/18 04:52 Primary care physician: Francois Hernandez DO Consults: 09/23/18 05:51 Consult to Superintendent Meters [CONS] Routine Reason for SW Consult: Patient with lumbar radiculopathy previously assessed by PT. Redmitted with back pain and requesting rehab placement 09/24/18 14:52 Consult to Spine Navigator [CONS] [CONS] Routine 09/24/18 14:53 Consult to Orthopedic Surgery [CONS] Routine Consulting Provider: Celestine Pina Jr Reason for Consult: Lumbar radiculopathy Call Completed: Yes 09/25/18 08:57 Consult to Pain Management [CONS] Routine Consulting Provider: Pain Mgt Interventional Kathryn Reason for Consult: MRI of the lumbar spine dated 09/14/2018 reveals multilevel mild degenerative changes. There is bilateral mild to the moderate foraminal stenosis secondary to disc bulges at L4-5 and L5-S1. For possible epidural steroid injections. Time Notified: 08:58 Call Completed: No Discharging clinician: Carlos Cox - Constitutional Vitals: Temp Pulse Resp BP Pulse Ox 97.9 F 78 18 131/87 96 09/27/18 07:21 09/27/18 07:21 09/27/18 07:21 09/27/18 07:21 09/27/18 07:21 Exam: General: In no acute distress. Conversant. Respiratory exam: CTAB. no accessory muscle use, rales, rhonchi, wheezes Cardiovascular exam: RRR, +S1, +S2. no murmur, gallop, rubs. GI/Abdominal exam: Non-tender, Non-distended, normal bowel sounds, soft, no peritoneal signs. Extremities exam: Pain extending Rt leg. Negative SLR. pulses palpable in b/l lower extremities. no calf tenderness Neurological exam: CN II-XII intact, AO X3, no focal deficits. no pronater drift, facial droop, speech deficit. Good strength in b/l LE. Skin exam: No skin rash, ulcer, purpura or ecchymosis. - Patient Status Disposition: Home, Self-Care Condition: Good - Discharge Instructions Follow Up With: Francois Hernandez DO [Primary Care Provider] -
[2018-09-27] MEDS: Insulin DETEMIR 100 UNIT/ML X5UNITS SQ SCH (21:39)
[2018-09-28] MEDS: *HR* OxyCODONE Immed Rel 5 MG TABLET PO PRN ×3 (02:42→16:07)
[2018-09-28] MEDS: *HR* Heparin 5,000 UNIT/ML VIAL SQ SCH ×3 (05:24→21:01)
[2018-09-28] MEDS: traMADol 50 MG TABLET PO PRN ×3 (05:24→21:03)
[2018-09-28] MEDS: Insulin LISPRO 300 UNITS/3 ML VIAL SQ SCH ×4 (08:45→21:01)
[2018-09-28] MEDS: Gabapentin 300 MG CAPSULE PO SCH ×3 (08:46→21:00)
--- NOTE | 2018-09-28 10:43 | Internal Med Progress Note ---
Hospitalist Progress Note - Encounter Date of Encounter: 09/28/18 Time of Encounter: 10:40 - Exam Vitals: Temp Pulse Resp BP Pulse Ox 97.9 F 76 16 128/90 96 09/28/18 06:23 09/28/18 06:23 09/28/18 06:23 09/28/18 06:23 09/28/18 06:23 Exam: General: In no acute distress. Conversant. Respiratory exam: CTAB. no accessory muscle use, rales, rhonchi, wheezes Cardiovascular exam: RRR, +S1, +S2. no murmur, gallop, rubs. GI/Abdominal exam: Non-tender, Non-distended, normal bowel sounds, soft, no peritoneal signs. Extremities exam: Pain extending Rt leg. Negative SLR. pulses palpable in b/l lower extremities. no calf tenderness Neurological exam: CN II-XII intact, AO X3, no focal deficits. no pronater drift, facial droop, speech deficit. Good strength in b/l LE. Skin exam: No skin rash, ulcer, purpura or ecchymosis. - Assessment and Plan (1) Lumbar radiculopathy Current Visit: No Status: Acute Assessment and Plan: Patient was discharged a few days ago with 20 pills of vicodine to be taken prn but he completed the pills in 2 days. He is currently on Oxycodone immediate release, Zanaflex and received one dose of methylprednisone Scheduled for lumbar epidural steroid injection on thursday (2) Diabetes mellitus Current Visit: No Status: Acute Assessment and Plan: We will continue to monitor her blood sugars and continue with his insulin regimen, is to continue on a diabetic diet. On Basal and SSI due to being on steroid (3) Hypothyroidism Current Visit: No Status: Acute Assessment and Plan: We will continue with levothyroxine and monitor his levels in a.m. Will check T3 levels and recheck TSH elevels. FT4 wnl. Follow up out pt with PCP. (4) Knee pain, left Current Visit: Yes Status: Acute Assessment and Plan: Will check X ray left knee to rule out fracture. Continue pain control. DVT Prophylaxis: heparin - Time Spent with Patient Total time spent is greater than 50% in coordination of care (as documented) at patient's floor/unit and/or counseling patient: Internal Medicine: Result - Labs CBC & Chem 7: 09/23/18 04:00 09/23/18 04:00 - ABG Interpretation ABG results: PT/INR, D-dimer PT 10.8 Seconds (9.4-12.1) 09/24/18 05:26 Consult Discharge Plan - Plan Referrals: Francois Hernandez DO [Primary Care Provider] - (2) Diabetes mellitus Qualifiers: Diabetes mellitus type: type 2 Diabetes mellitus senior living insulin use: without senior living use Diabetes mellitus complication status: without complication Qualified Code(s): E11.9 - Type 2 diabetes mellitus without complications (3) Hypothyroidism Qualifiers: Hypothyroidism type: acquired Qualified Code(s): E03.9 - Hypothyroidism, unspecified (4) Knee pain, left Qualifiers: Chronicity: chronic Qualified Code(s): M25.562 - Pain in left knee; G89.29 - Other chronic pain
[2018-09-28] MEDS: tiZANidine 4 MG TABLET PO PRN (18:13)
[2018-09-28] MEDS: Insulin DETEMIR 100 UNIT/ML X5UNITS SQ SCH (21:03)
[2018-09-29] MEDS: *HR* OxyCODONE Immed Rel 5 MG TABLET PO PRN ×3 (00:36→15:14)
[2018-09-29] MEDS: *HR* Heparin 5,000 UNIT/ML VIAL SQ SCH ×2 (05:01→15:15)
[2018-09-29] MEDS: Insulin LISPRO 300 UNITS/3 ML VIAL SQ SCH ×2 (07:45→12:51)
[2018-09-29] MEDS: tiZANidine 4 MG TABLET PO PRN (09:52)
[2018-09-29] MEDS: Gabapentin 300 MG CAPSULE PO SCH ×2 (09:53→15:14)
--- NOTE | 2018-09-29 10:07 | Internal Med Progress Note ---
Hospitalist Progress Note - Encounter Date of Encounter: 09/29/18 Time of Encounter: 10:00 - Exam Vitals: Temp Pulse Resp BP Pulse Ox 98.5 F 81 15 112/73 98 09/29/18 07:23 09/29/18 07:23 09/29/18 07:23 09/29/18 07:23 09/29/18 07:23 Exam: General: In no acute distress. Conversant. Respiratory exam: CTAB. no accessory muscle use, rales, rhonchi, wheezes Cardiovascular exam: RRR, +S1, +S2. no murmur, gallop, rubs. GI/Abdominal exam: Non-tender, Non-distended, normal bowel sounds, soft, no peritoneal signs. Extremities exam: Pain extending Rt leg. Negative SLR. pulses palpable in b/l lower extremities. no calf tenderness Neurological exam: CN II-XII intact, AO X3, no focal deficits. no pronater drift, facial droop, speech deficit. Good strength in b/l LE. Skin exam: No skin rash, ulcer, purpura or ecchymosis. - Assessment and Plan (1) Lumbar radiculopathy Current Visit: No Status: Acute Assessment and Plan: Patient was discharged a few days ago with 20 pills of vicodine to be taken prn but he completed the pills in 2 days. He is currently on Oxycodone immediate release, Zanaflex and received one dose of methylprednisone Scheduled for lumbar epidural steroid injection outpatient Code(s): M54.16 - Radiculopathy, lumbar region (2) Diabetes mellitus Current Visit: No Status: Acute Assessment and Plan: We will continue to monitor her blood sugars and continue with his insulin regimen, is to continue on a diabetic diet. On Basal and SSI due to being on steroid (3) Hypothyroidism Current Visit: No Status: Acute Assessment and Plan: We will continue with levothyroxine and monitor his levels in a.m. Will check T3 levels and recheck TSH elevels. FT4 wnl. Follow up out pt with PCP. (4) Knee pain, left Current Visit: Yes Status: Acute Assessment and Plan: Will check X ray left knee to rule out fracture. Continue pain control. 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
--- NOTE | 2018-09-29 15:13 | Physician Discharge Referral ---
- Diagnosis (1) Lumbar radiculopathy Priority: Primary Status: Acute (2) Diabetes mellitus Priority: Primary Status: Acute (3) Hypothyroidism Priority: Primary Status: Acute (4) Knee pain, left Priority: Primary Status: Acute - Transfer Medications Home Medications: Levothyroxine Sodium 250 mcg PO DAILY 09/14/18 [History] Nabumetone [Relafen] 500 mg PO BID 09/14/18 [History] Insulin Glargine,Hum.rec.anlog [Basaglar Kwikpen U-100] 15 unit SQ HS 30 Days #5 insuln.pen 09/17/18 [Rx] Gabapentin [Neurontin] 300 mg PO TID 30 Days #90 capsule 09/20/18 [Rx] Alogliptin Chuck/Metformin HCl [Alogliptin-Metformin 12.5-500] 1 tab PO BID 09/23/18 [History] Acetaminophen [Tylenol] 650 mg PO Q6HR PRN tablet 09/27/18 [Rx] Tizanidine HCl [Zanaflex] 2 mg PO TID PRN 09/27/18 [History] Allergies/Adverse Reactions: Allergy/AdvReac Type Severity Reaction Status Date / Time Penicillins Allergy Seizure Verified 02/24/16 03:20 - Respiratory Orders Smoking Cessation: Smoking cessation has been advised. For more information, call the [place] Tobacco Quit Line at 1-870-GFSNNOW. CERTIFICATION: I certify that the transfer of the above named patient to an Extended Care Facility is necessary for the continuing treatment of the diagnosis listed. The above information is true and accurate reflection of patient's current condition. Confidential - Redisclosure prohibited without a patient's written consent.
--- NOTE | 2018-09-29 15:16 | Discharge Summary ---
Date of Encounter: 09/29/18 Time of Encounter: 15:00 - Discharge Diagnosis (1) Lumbar radiculopathy Priority: Primary Status: Acute Assessment and Plan: Mr. Dye is a 47 year old male with recently diagnosed diabetes and poorly controlled hypothyroidism admitted for acute back pain from lumbar radiculopathy with shooting pain. He was recently discharged with a similar complaint to be managed without surgery however was admitted for surgical evaluation again. Thoracic MRI was obtained as well as spine evaluation. Patient has foraminal stenosis of lumbar spine and lumbar radiculopathy. Patient was seen by spine surgeon who recommended outpatient management with epidural steroid injection. No surgical intervention was recommended. Patient did have significantly elevated TSH. He was continued on home dosage as it is unclear whether recently increased. Physical therapy recommended outpatient the therapy. Patient was obtained appointment outpatient to get epidural injection. He was discharged to SNF in a stable condition Code(s): M54.16 - Radiculopathy, lumbar region (2) Diabetes mellitus Priority: Primary Status: Acute Qualifiers: Diabetes mellitus type: type 2 Diabetes mellitus superintendent container terminal insulin use: without superintendent container terminal use Diabetes mellitus complication status: without complication Qualified Code(s): E11.9 - Type 2 diabetes mellitus without complications (3) Hypothyroidism Priority: Primary Status: Acute Qualifiers: Hypothyroidism type: acquired Qualified Code(s): E03.9 - Hypothyroidism, unspecified (4) Knee pain, left Priority: Primary Status: Acute Qualifiers: Chronicity: chronic Qualified Code(s): M25.562 - Pain in left knee; G89.29 - Other chronic pain Hospital course: Mr. Dye is a 47 year old male - Time Spent with Patient Total time spent providing and/or coordinating discharge services: - Discharge Medications Home Medications: Levothyroxine Sodium 250 mcg PO DAILY 09/14/18 [History] Nabumetone [Relafen] 500 mg PO BID 09/14/18 [History] Insulin Glargine,Hum.rec.anlog [Basaglar Kwmikapen U-100] 15 unit SQ HS 30 Days #5 insuln.pen 09/17/18 [Rx] Gabapentin [Neurontin] 300 mg PO TID 30 Days #90 capsule 09/20/18 [Rx] Alogliptin Chuck/Metformin HCl [Alogliptin-Metformin 12.5-500] 1 tab PO BID 09/23/18 [History] Acetaminophen [Tylenol] 650 mg PO Q6HR PRN tablet 09/27/18 [Rx] Tizanidine HCl [Zanaflex] 2 mg PO TID PRN 09/27/18 [History] Allergies/Adverse Reactions: Allergy/AdvReac Type Severity Reaction Status Date / Time Penicillins Allergy Seizure Verified 02/24/16 03:20 Date of admission: 09/23/18 04:52 Primary care physician: Francois Hernandez DO Consults: 09/23/18 05:51 Consult to Dairy Scientist [CONS] Routine Reason for SW Consult: Patient with lumbar radiculopathy previously assessed by PT. Redmitted with back pain and requesting rehab placement 09/24/18 14:52 Consult to Spine Navigator [CONS] [CONS] Routine 09/24/18 14:53 Consult to Orthopedic Surgery [CONS] Routine Consulting Provider: Celestine Pina Jr Reason for Consult: Lumbar radiculopathy Call Completed: Yes 09/25/18 08:57 Consult to Pain Management [CONS] Routine Consulting Provider: Pain Mgt Interventional Kathryn Reason for Consult: MRI of the lumbar spine dated 09/14/2018 reveals multilevel mild degenerative changes. There is bilateral mild to the moderate foraminal stenosis secondary to disc bulges at L4-5 and L5-S1. For possible epidural steroid injections. Time Notified: 08:58 Call Completed: No 09/27/18 11:34 Consult to Occupational Therapy [CONS] Stat Comment: Evaluate, develop and implement POC Reason for Consult: d/c planning Does patient have active BEDREST order?: No Is patient medically & hemodynamically stable?: Yes Consult to Physical Therapy [CONS] Stat Comment: Evaluate, develop and implement POC Reason for Consult: d/c planning Does patient have active BEDREST order?: No Is patient medically & hemodynamically stable?: Yes - Constitutional Vitals: Temp Pulse Resp BP Pulse Ox 98.5 F 76 14 102/70 98 09/29/18 11:34 09/29/18 11:34 09/29/18 11:34 09/29/18 11:34 09/29/18 07:23 Exam: General: In no acute distress. Conversant. Respiratory exam: CTAB. no accessory muscle use, rales, rhonchi, wheezes Cardiovascular exam: RRR, +S1, +S2. no murmur, gallop, rubs. GI/Abdominal exam: Non-tender, Non-distended, normal bowel sounds, soft, no peritoneal signs. Extremities exam: Pain extending Rt leg. Negative SLR. pulses palpable in b/l lower extremities. no calf tenderness Neurological exam: CN II-XII intact, AO X3, no focal deficits. no pronater drift, facial droop, speech deficit. Good strength in b/l LE. Skin exam: No skin rash, ulcer, purpura or ecchymosis. - Patient Status Disposition: Home, Self-Care Condition: Good - Discharge Instructions Follow Up With: Francois Hernandez DO [Primary Care Provider] -
[2018-09-29 16:11] VITALS: BP 113/82
== END 2018-09-29 19:27 | disposition home or self-care (01) ==
LOC: EMEROOARM 00:59 → 3NENU 00:59 → SUATTDRO 04:52 → 3NENU 06:02
PROVIDERS: ADMIT Family Medicine; ATTEND Internal Medicine

== ENCOUNTER 2021-03-12 05:29 | Observation (INO) ==
[2021-03-12] MEDS ORDERED: 0.9 % Sodium Chloride 1,000 ML IVC ONE ×2 (05:38→07:02)
[2021-03-12 06:10] LABS: VBG HCO3 31 mEq/L (21-27); VBG PCO2 52 mmHg (41-51); VBG PH 7.38 pH Units (7.32-7.42); VBG PO2 33 mmHg (25-50)
[2021-03-12 06:12] LABS: Basophils # 0.1 K/mcL (0.0-0.2); Basophils % 0.7 %; Eosinophils # 0.1 K/mcL (0.0-0.6); Eosinophils % 1.2 %; Hematocrit 47.6 % (37.5-50.1); Hemoglobin 16.2 g/dL (12.9-16.9); Immature Granulocytes % 0.3 % (0-4); Lymphocytes % 28.6 %; Mean Corpuscular Hemoglobin 30.9 pg (28.0-33.3); Mean Corpuscular Volume 90.8 fL (83.0-100.0); Mean Platelet Volume 9.7 fL (9.4-12.4); Monocytes # 0.6 K/mcL (0.0-1.3); Monocytes % 8.9 %; Neutrophils # 4.2 K/mcL (1.6-8.9); Platelet Count 265 K/mcL (140-400); Red Blood Count 5.24 M/mcL (4.19-5.50); Red Cell Distribution Width 11.9 % (11.5-14.5); Segmented Neutrophils % 60.3 %; White Blood Count 6.9 K/mcL (4.3-11.1)
[2021-03-12 06:52] LABS: Bilirubin,Urine Negative (Negative); Blood,Urine Negative (Negative); Clarity,Urine Clear (Clear); Color,Urine Colorless (Yellow); Glucose,Urine (UA) >=1000 mg/dL (Normal); Ketones,Urine Trace mg/dL (Negative); Leukocyte Esterase,Urine Negative (Negative); Nitrite,Urine Negative (Negative); PH,Urine 6.5 pH Units (5.0-8.0); Protein,Urine Negative (Neg-Trace); Specific Gravity,Urine > 1.030 (1.010-1.025); Urobilinogen,Urine Normal (Normal); WBC,Urine 0-3 per hpf (0-3)
[2021-03-12 06:56] LABS: Calcium 10.2 mg/dL (8.6-10.3); Potassium 4.4 mEq/L (3.5-5.1)
[2021-03-12] MEDS ORDERED: Insulin Human Regular 10 UNIT in 0.9 % Sodium Chloride 10 ML IV ONE (07:17)
[2021-03-12] MEDS ORDERED: Naloxone 0.4 MG/ML INJ IVP PRN (07:48)
[2021-03-12] MEDS ORDERED: *HR* Dextrose 50 % in Water (Vial) 50 ML VIAL IVP PRN (08:10)
[2021-03-12] MEDS ORDERED: D5% in Water 1,000 ML IVC PRN (08:10)
[2021-03-12] MEDS ORDERED: Dextrose Gel 15 GM/37.5 ML TUBE PO PRN ×2 (08:10)
[2021-03-12] MEDS ORDERED: 0.9 % Sodium Chloride 1,000 ML IVC SCH (08:15)
[2021-03-12] MEDS: Insulin LISPRO 300 UNITS/3 ML VIAL SUBQ SCH ×3 (09:02→15:39)
[2021-03-12] MEDS ORDERED: Insulin DETEMIR 100 UNIT/ML X5UNITS SUBQ SCH (09:45)
[2021-03-12 11:22] LABS: VBG HCO3 31 mEq/L (21-27); VBG PCO2 57 mmHg (41-51); VBG PH 7.34 pH Units (7.32-7.42); VBG PO2 48 mmHg (25-50)
[2021-03-12 11:30] LABS: Estimated Average Glucose 312 mg/dl; Hemoglobin A1C 12.5 %
[2021-03-12 11:37] LABS: BUN/Creatinine Ratio 19 (6-26); Blood Urea Nitrogen 27 mg/dL (6-20); Calcium 9.8 mg/dL (8.6-10.3); Carbon Dioxide 30 mEq/L (23-29); Chloride 95 mEq/L (98-107); Glucose 549 mg/dL (70-105); Osmolality,Calculated 306 (280-300); Potassium 3.9 mEq/L (3.5-5.1); Sodium 133 mEq/L (136-145); eGFR For African Americans > 60 (> 60); eGFR For Non-African Americans 52 (> 60)
[2021-03-12] MEDS: 0.9 % Sodium Chloride 1,000 ML IVC SCH ×3 (15:27→18:07)
[2021-03-12 18:37] LABS: BUN/Creatinine Ratio 17 (6-26); Blood Urea Nitrogen 22 mg/dL (6-20); Calcium 9.3 mg/dL (8.6-10.3); Carbon Dioxide 28 mEq/L (23-29); Chloride 106 mEq/L (98-107); Glucose 152 mg/dL (70-105); Osmolality,Calculated 296 (280-300); Potassium 3.8 mEq/L (3.5-5.1); Sodium 140 mEq/L (136-145); eGFR For African Americans > 60 (> 60); eGFR For Non-African Americans > 60 (> 60)
[2021-03-12] MEDS: Insulin DETEMIR 100 UNIT/ML X5UNITS SUBQ SCH (20:28)
[2021-03-12] MEDS ORDERED: Insulin LISPRO 300 UNITS/3 ML VIAL SUBQ SCH (21:00)
[2021-03-13] MEDS: 0.9 % Sodium Chloride 1,000 ML IVC SCH (05:56)
[2021-03-13 06:02] LABS: Basophils % 0.3 %; Eosinophils # 0.1 K/mcL (0.0-0.6); Eosinophils % 1.2 %; Hematocrit 43.6 % (37.5-50.1); Immature Granulocytes % 0.3 % (0-4); Lymphocytes # 2.4 K/mcL (0.6-4.6); Lymphocytes % 34.6 %; Mean Corpuscular HGB Conc 34.4 g/dL (31.6-35.5); Mean Corpuscular Hemoglobin 30.7 pg (28.0-33.3); Mean Corpuscular Volume 89.2 fL (83.0-100.0); Mean Platelet Volume 9.6 fL (9.4-12.4); Monocytes # 0.5 K/mcL (0.0-1.3); Monocytes % 7.2 %; Neutrophils # 3.9 K/mcL (1.6-8.9); Platelet Count 241 K/mcL (140-400); Red Blood Count 4.89 M/mcL (4.19-5.50); Red Cell Distribution Width 12.1 % (11.5-14.5); Segmented Neutrophils % 56.4 %; White Blood Count 6.9 K/mcL (4.3-11.1)
[2021-03-13 06:22] LABS: BUN/Creatinine Ratio 17 (6-26); Blood Urea Nitrogen 21 mg/dL (6-20); Calcium 8.8 mg/dL (8.6-10.3); Carbon Dioxide 26 mEq/L (23-29); Chloride 105 mEq/L (98-107); Glucose 181 mg/dL (70-105); Osmolality,Calculated 292 (280-300); Sodium 137 mEq/L (136-145); eGFR For African Americans > 60 (> 60); eGFR For Non-African Americans > 60 (> 60)
[2021-03-13] MEDS ORDERED: Insulin LISPRO 300 UNITS/3 ML VIAL SUBQ SCH (07:30)
[2021-03-13 07:43] VITALS: BP 102/65
[2021-03-13] MEDS: Insulin DETEMIR 100 UNIT/ML X5UNITS SUBQ SCH (08:29)
== END 2021-03-13 11:35 | disposition home or self-care (01) ==
LOC: EMEROOARM 05:29 → CDU 05:29 → SUATTDRO 07:30 → CDU 08:41 → 3BNU 15:15
PROVIDERS: ADMIT Internal Medicine; ATTEND Nurse Practitioner